=== PATIENT | female | born 1955 | race Caucasian/White ===

== ENCOUNTER → 2017-06-06 | Outpatient (CLI) | payer BC ==
[~2017-06-06] MED LIST: ALBUMIN 25% 100 ML SOLN IV ONE; LIDOCAINE 1% 300 MG/30 ML SDV ONE
== END ==
LOC: FIMAGING 09:21
PROVIDERS: ATTEND Physician Assistant
PROC: 0W9F3ZZ Drainage of Abdominal Wall, Percutaneous Approach (ICD-10-PCS; principal; 2017-06-06)
DX: R18.8 Other ascites (principal); K74.60 Unspecified cirrhosis of liver
CPT/HCPCS: P9047

== ENCOUNTER → 2017-06-19 | Outpatient (CLI) | payer BC | LOC: BMCIMAGING 08:38 | PROVIDERS: ATTEND Internal Medicine | DX: Z13.820 Encounter for screening for osteoporosis (principal); M81.0 Age-related osteoporosis without current pathological fracture; N28.1 Cyst of kidney, acquired; R18.8 Other ascites ==

== ENCOUNTER → 2017-07-02 | Outpatient (CLI) | payer BC | LOC: BMCIMAGING 07:26 | PROVIDERS: ATTEND Physician Assistant | DX: K74.69 Other cirrhosis of liver (principal); R18.8 Other ascites; K80.20 Calculus of gallbladder without cholecystitis without obstruction; R16.1 Splenomegaly, not elsewhere classified ==

== ENCOUNTER → 2017-08-08 | Outpatient (CLI) | payer BC | LOC: BMCIMAGING 08:51 | PROVIDERS: ATTEND Internal Medicine | DX: Z12.31 Encounter for screening mammogram for malignant neoplasm of breast (principal) | CPT/HCPCS: G0202 ==

== ENCOUNTER → 2017-11-27 | Outpatient (CLI) | payer BC | LOC: FIMAGING 07:34 | PROVIDERS: ATTEND Physician Assistant | DX: K70.31 Alcoholic cirrhosis of liver with ascites (principal); R16.1 Splenomegaly, not elsewhere classified; K80.20 Calculus of gallbladder without cholecystitis without obstruction; N28.1 Cyst of kidney, acquired ==

== ENCOUNTER → 2018-08-05 | Outpatient (CLI) | payer BC | LOC: FIMAGING 08:11 | PROVIDERS: ATTEND Physician Assistant | DX: K76.89 Other specified diseases of liver (principal); K80.20 Calculus of gallbladder without cholecystitis without obstruction; I70.0 Atherosclerosis of aorta; R18.8 Other ascites ==

== ENCOUNTER → 2018-08-14 | Outpatient (CLI) | payer BC | LOC: BMCIMAGING 09:02 | PROVIDERS: ATTEND Internal Medicine | DX: Z12.31 Encounter for screening mammogram for malignant neoplasm of breast (principal) ==

== ENCOUNTER → 2018-12-02 | Outpatient (CLI) | payer BC | LOC: BMCIMAGING 12:07 | PROVIDERS: ATTEND Internal Medicine Rheumatology | DX: M25.571 Pain in right ankle and joints of right foot (principal); M19.071 Primary osteoarthritis, right ankle and foot ==

== ENCOUNTER → 2018-12-17 | Outpatient (CLI) | payer BC | LOC: FIMAGING 08:47 | PROVIDERS: ATTEND Physician Assistant | DX: K76.89 Other specified diseases of liver (principal); K70.31 Alcoholic cirrhosis of liver with ascites; K80.20 Calculus of gallbladder without cholecystitis without obstruction ==

== ENCOUNTER → 2018-12-31 | Outpatient (CLI) | payer BC ==
[~2018-12-31] MED LIST changes: -ALBUMIN 25% 100 ML SOLN IV ONE
== END ==
LOC: FIMAGING 07:54
PROVIDERS: ATTEND Physician Assistant
DX: K70.31 Alcoholic cirrhosis of liver with ascites (principal)

== ENCOUNTER → 2019-01-15 | Outpatient (CLI) | payer BC ==
[~2019-01-15] MED LIST changes: +IOPAMIDOL (ISOVUE-300) 100 ML BTL ONE; -LIDOCAINE 1% 300 MG/30 ML SDV ONE
== END ==
LOC: FIMAGING 08:56
PROVIDERS: ATTEND Physician Assistant
DX: K46.9 Unspecified abdominal hernia without obstruction or gangrene (principal); K74.60 Unspecified cirrhosis of liver; K76.6 Portal hypertension; R16.1 Splenomegaly, not elsewhere classified; I85.10 Secondary esophageal varices without bleeding
CPT/HCPCS: 82565-PO; Q9967